=== PATIENT | male | born 1975 | race Caucasian/White ===

== ENCOUNTER 2019-11-27 21:03 | Inpatient (IN) | payer OTHER ==
--- NOTE | 2019-11-27 21:22 | PDOC ---
Rapid Medical Evaluation Time Seen by Provider: 11/27/19 21:16 Medical Evaluation: 11/27/19 21:16 Pt presents with abdominal pain since 9am this morning. Admits to nausea and vomiting. Tried Gas X with little relief of symptoms. Last oral intake 4pm Exam: TTP RLQ Orders: labs, Pt to proceed to the ER for further evaluation Discharge Disposition - Diagnosis Abdominal pain Qualifiers: Abdominal location: right lower quadrant Qualified Code(s): R10.31 - Right lower quadrant pain - Referrals - Patient Instructions - Post Discharge Activity
[2019-11-27 22:38] LABS: BASO % 0.3 % (0-2.0); HEMATOCRIT 46.6 % (35.4-49); LYMPH % 6.2 % (8-40); MCH 30.6 pg (25.7-33.7); MCHC 34.4 g/dl (32.0-35.9); MEAN CELL VOLUME 88.9 fl (80-96); MEAN PLT VOLUME 8.8 fl (7.5-11.1); MONO % 3.6 % (3.8-10.2); NEUT % 89.9 % (42.8-82.8); PLATELET COUNT 303 K/MM3 (134-434); RBC 5.25 M/mm3 (4.00-5.60); RDW 12.5 % (11.9-15.9); WHITE BLOOD COUNT 20.6 K/mm3 (4.0-10.0)
[2019-11-27 22:41] LABS: PH,URINE 6.5 (5.0-8.0); URINE APPEARANCE CLOUDY; URINE BILIRUBIN NEGATIVE (NEGATIVE); URINE COLOR YELLOW; URINE GLUCOSE (UA) NEGATIVE (NEGATIVE); URINE KETONE NEGATIVE (NEGATIVE); URINE LEUK ESTERASE NEGATIVE (NEGATIVE); URINE NITRITE NEGATIVE (NEGATIVE); URINE PROTEIN NEGATIVE (NEGATIVE); URINE UROBILINOGEN 0.2 mg/dL (0.2-1.0)
[2019-11-27] MEDS ORDERED: SODIUM CHLORIDE 0.9% 500 ML INFUS.BAG IV ONE (22:44)
[2019-11-27] MEDS ORDERED: ONDANSETRON 4 MG/2 ML VIAL IVPUSH ONE (22:44)
[2019-11-27] MEDS ORDERED: ACETAMINOPHEN 1000 MG/100 ML VIAL (NON FORMULARY) IVPB ONE (22:44)
[2019-11-27 22:49] LABS: INR 0.97 (0.83-1.09); PROTHROMBIN TIME (PATIENT) 11.5 SEC (9.7-13.0)
[2019-11-27] MEDS ORDERED: ACETAMINOPHEN INJECTION 100 ML IVPB ONE (23:01)
[2019-11-27 23:05] LABS: PLATELET ESTIMATE ADEQUATE
[2019-11-27 23:17] LABS: EPI CELLS 0.8 /uL (0-25.1); URINE BACTERIA 13.3 /uL (0-1359); URINE RBC 1.1 /uL (0-23.9); URINE WBC 0.6 /uL (0-25.8)
[2019-11-27 23:25] LABS: ALBUMIN 4.5 g/dl (3.4-5.0); BILIRUBIN,TOTAL 1.3 mg/dL (0.2-1); BLOOD UREA NITROGEN 10.1 mg/dL (7-18); CALCIUM 9.8 mg/dL (8.5-10.1); CREATININE 0.9 mg/dL (0.55-1.3); POTASSIUM 3.6 mmol/L (3.5-5.1); TOT PROT 8.6 g/dl (6.4-8.2)
--- NOTE | 2019-11-27 23:28 | PDOC ---
History of Present Illness - General Chief Complaint: Pain, Acute Stated Complaint: ABD PAIN Time Seen by Provider: 11/27/19 21:16 Past History - Medical History Allergies/Adverse Reactions: Allergies Allergy/AdvReac Type Severity Reaction Status Date / Time No Known Allergies Allergy Verified 11/27/19 22:08 COPD: No - Psycho-Social/Smoking History Smoking History: Never smoked - Substance Abuse Hx (Audit-C & DAST Scrn) How often the patient has a drink containing alcohol: Never Score: In Men: 4 or > Positive; In Women: 3 or > Positive: 0 Screen Result (Pos requires Nsg. Audit-10AR): Negative In the last yr the pt used illegal drug/Rx for NonMed reason: No Score: Yes response is considered Positive: 0 Screen Result (Positive result requires Nsg. DAST-10): Negative *Physical Exam - Vital Signs Last Vital Signs Temp Pulse Resp BP Pulse Ox 97 F L 134 H 19 126/78 97 11/27/19 21:16 11/27/19 21:16 11/27/19 21:16 11/27/19 21:16 11/27/19 21:16 ED Treatment Course - LABORATORY CBC & Chemistry Diagram: 11/27/19 22:30 11/27/19 22:30 - ADDITIONAL ORDERS Additional order review: Laboratory Results 11/27/19 11/27/19 11/27/19 22:30 22:30 22:30 PT with INR 11.50 INR 0.97 Sodium 136 Potassium 3.6 Chloride 101 Carbon Dioxide 24 Anion Gap 11 BUN 10.1 Creatinine 0.9 Est GFR (CKD-EPI)AfAm 118.30 Est GFR (CKD-EPI)NonAf 102.07 Random Glucose 114 H Calcium 9.8 Total Bilirubin 1.3 H AST 24 ALT 71 H Alkaline Phosphatase 102 Total Protein 8.6 H Albumin 4.5 Lipase 133 Urine Color Yellow Urine Appearance Cloudy Urine pH 6.5 Ur Specific [place] 1.002 L Urine Protein Negative Urine Glucose (UA) Negative Urine Ketones Negative Urine Blood Trace Urine Nitrite Negative Urine Bilirubin Negative Urine Urobilinogen 0.2 Ur Leukocyte Esterase Negative Urine WBC (Auto) 0.6 Urine RBC (Auto) 1.1 Urine Casts (Auto) 0.0 U Epithel Cells (Auto) 0.8 Urine Bacteria (Auto) 13.3 11/27/19 22:30 RBC 5.25 MCV 88.9 MCHC 34.4 RDW 12.5 MPV 8.8 Neutrophils % 89.9 H Lymphocytes % 6.2 L Monocytes % 3.6 L Eosinophils % 0.0 Basophils % 0.3 - RADIOLOGY Radiology Studies Ordered: Category Date Time Status ABDOMEN & PELVIS CT WITH CONTR [CT] Stat CT Scan 11/27/19 22:44 Ordered - Medications Given in the ED: ED Medications Discontinued Medications Generic Name Dose Route Start Last Admin Trade Name Addy PRN Reason Stop Dose Admin Acetaminophen 1,000 mg 11/27/19 22:44 11/27/19 23:10 Ofirmev Injection - IVPB 11/27/19 22:45 1,000 mg ONCE ONE Administration Ondansetron HCl 4 mg 11/27/19 22:44 11/27/19 23:10 Zofran Injection IVPUSH 11/27/19 22:45 4 mg NOW ONE Administration Sodium Chloride 1,000 ml 11/27/19 22:44 11/27/19 23:10 Normal Saline - IV 11/27/19 22:45 1,000 ml ONCE ONE Administration Discharge - Discharge Information Problems reviewed: Yes Clinical Impression/Diagnosis: Appendicitis Abdominal pain Qualifiers: Abdominal location: right lower quadrant Qualified Code(s): R10.31 - Right lower quadrant pain Condition: Stable - Admission Yes - Follow up/Referral - Patient Discharge Instructions - Post Discharge Activity
--- NOTE | 2019-11-27 23:57 | PDOC ---
Documentation entered by Deidra Reynoso SCRIBE, acting as scribe for Alize Chanel DO. Alize Chanel DO: This documentation has been prepared by the anderse, Deidra Reynoso SCRIBE, under my direction and personally reviewed by me in its entirety. I confirm that the documentation accurately reflects all work, treatment, procedures, and medical decision making performed by me. Attending Attestation - Resident Resident Name: Joan Pace - ED Attending Attestation I have performed the following: I have examined & evaluated the patient, The case was reviewed & discussed with the resident, I agree w/resident's findings & plan, Exceptions are as noted - HPI HPI: 11/27/19 22:51 Patient is a 44 year old male with no significant past medical history of who presents to the ED with abdominal pain and associated nausea and vomiting since yesterday. Patient denies: any other related symptoms Allergies: NKDA - Physicial Exam PE: 11/27/19 23:54 Gen: aaox3, uncomfortable heart: +s1s2 tachy lungs: cta b/l abd: soft, diffuse ttp, suprapubic and RLQ ttp, R cva mild ttp ext: no c/c/e - Medical Decision Making 11/27/19 23:55 a/p: 44yo male with lower abd pain, n/v -concern for appy -labs sent from [facility] reviewed -wbc 20 -ua neg -pt give tyelnol for pain and feels better -pt pending ct imaging 11/28/19 01:33 pt with appy on cta wbc 20 zosyn ordered npo [facility] for surgery, will call in AM will admit to medicine 11/28/19 01:35 case discussed with Hilario who accepts pt to service Discharge - Discharge Information Problems reviewed: Yes Clinical Impression/Diagnosis: Appendicitis Abdominal pain Qualifiers: Abdominal location: right lower quadrant Qualified Code(s): R10.31 - Right lower quadrant pain Condition: Fair - Admission Yes - Follow up/Referral - Patient Discharge Instructions - Post Discharge Activity
[2019-11-28] MEDS ORDERED: PIPERACILLIN/TAZOB 3.375 GM 3.375 GM in DEXTROSE 5%-WATER - 50 ML IVPB ONE (01:33)
[2019-11-28] MEDS ORDERED: PIPERACILLIN/TAZOB 3.375 GM 3.375 GM/50 ML BAG IVPB ONE (01:43)
--- NOTE | 2019-11-28 03:09 | PN ---
Teaching Attending Note Name of Resident: Mira Jackman ATTENDING PHYSICIAN STATEMENT I saw and evaluated the patient. I reviewed the resident's note and discussed the case with the resident. I agree with the resident's findings and plan as documented. SUBJECTIVE: 44yoM without significant PMH who presents with 1 day of acute onset abdominal pain, nausea, and vomiting. Patient states pain began in the morning in epigastric area but throughout the day increased in intensity and migrated to the RLQ. Has been unable to tolerate PO intake. Denies diarrhea, melena, hematochezia. Temp 97F on arrival, tachycardic to 134. Labs notable for WBC 20.6 with 90% PMN and 4% bands. Bilirubin 1.3, remainder of labs unremarkable. CT abd/pelvis jaelyn wed early acute appendicitis without secondary complication. ED discussed case with surgery, Dr. Valle. Patient received 1L NS, zofran, and Zosyn. OBJECTIVE: Vital Signs - 24 hr 11/27/19 21:16 Temperature 97 F L Pulse Rate 134 H Respiratory 19 Rate Blood Pressure 126/78 O2 Sat by Pulse 97 Oximetry (%) EXAM Gen: awake, alert, NAD HEENT: NC/AT. MMM CV: RRR, no MRG Resp: CTAB Abd: Tender RLQ without rebound/guarding Ext: No peripheral edema Neuro: CN II-XII grossly intact Psych: AOx3 Laboratory Results - last 24 hr 11/27/19 11/27/19 11/27/19 22:30 22:30 22:30 WBC 20.6 H RBC 5.25 Hgb 16.0 Hct 46.6 MCV 88.9 MCH 30.6 MCHC 34.4 RDW 12.5 Plt Count 303 MPV 8.8 Absolute Neuts (auto) 18.5 H Total Counted 100 Neutrophils % 89.9 H Neutrophils % (Manual) 88.0 H Band Neutrophils % 4.0 Lymphocytes % 6.2 L Lymphocytes % (Manual) 4.0 L Monocytes % 3.6 L Monocytes % (Manual) 4 Eosinophils % 0.0 Basophils % 0.3 Nucleated RBC % 0 Platelet Estimate Adequate Platelet Comment No clumping noted PT with INR 11.50 INR 0.97 Sodium 136 Potassium 3.6 Chloride 101 Carbon Dioxide 24 Anion Gap 11 BUN 10.1 Creatinine 0.9 Est GFR (CKD-EPI)AfAm 118.30 Est GFR (CKD-EPI)NonAf 102.07 Random Glucose 114 H Lactic Acid Calcium 9.8 Total Bilirubin 1.3 H AST 24 ALT 71 H Alkaline Phosphatase 102 Total Protein 8.6 H Albumin 4.5 Lipase 133 Urine Color Urine Appearance Urine pH Ur Specific [place] Urine Protein Urine Glucose (UA) Urine Ketones Urine Blood Urine Nitrite Urine Bilirubin Urine Urobilinogen Ur Leukocyte Esterase Urine WBC (Auto) Urine RBC (Auto) Urine Casts (Auto) U Epithel Cells (Auto) Urine Bacteria (Auto) 11/27/19 11/28/19 22:30 01:36 WBC RBC Hgb Hct MCV MCH MCHC RDW Plt Count MPV Absolute Neuts (auto) Total Counted Neutrophils % Neutrophils % (Manual) Band Neutrophils % Lymphocytes % Lymphocytes % (Manual) Monocytes % Monocytes % (Manual) Eosinophils % Basophils % Nucleated RBC % Platelet Estimate Platelet Comment PT with INR INR Sodium Potassium Chloride Carbon Dioxide Anion Gap BUN Creatinine Est GFR (CKD-EPI)AfAm Est GFR (CKD-EPI)NonAf Random Glucose Lactic Acid 1.1 Calcium Total Bilirubin AST ALT Alkaline Phosphatase Total Protein Albumin Lipase Urine Color Yellow Urine Appearance Cloudy Urine pH 6.5 Ur Specific [place] 1.002 L Urine Protein Negative Urine Glucose (UA) Negative Urine Ketones Negative Urine Blood Trace Urine Nitrite Negative Urine Bilirubin Negative Urine Urobilinogen 0.2 Ur Leukocyte Esterase Negative Urine WBC (Auto) 0.6 Urine RBC (Auto) 1.1 Urine Casts (Auto) 0.0 U Epithel Cells (Auto) 0.8 Urine Bacteria (Auto) 13.3 ASSESSMENT AND PLAN: 44yoM without significant PMH who presents with 2 days of abdominal pain, nausea, and vomiting found to have acute appendicitis. Appendicitis Exam, imaging consistent with acute appendicitis without evidence of complication s/p Zosyn in ED - NPO, continue maintenance fluids - IV Tylenol, morphine PRN for pain - ceftriaxone/metronidazole - surgery consulted DVT ppx: SCD pending OR
[2019-11-28] MEDS ORDERED: LACTATED RINGERS SOLUTION 1,000 ML IV SCH (03:45)
[2019-11-28] MEDS ORDERED: ACETAMINOPHEN 1000 MG/100 ML VIAL (NON FORMULARY) IVPB PRN (05:00)
--- OUTSIDE RECORDS SUMMARY | 2019-11-28 06:42 | XMS ---
:1975 Author Organization [facility] Support Name Relationship Address Phone UE, UNEMPLOYED Unavailable Unavailable Unavailable UE Unavailable Unavailable Unavailable COLBY DENTON [address] [place] [address] Re-disclosure Warning The records that you are about to access may contain information from federally- assisted alcohol or drug abuse programs. If such information is present, then the following federally mandated warning applies: This information has been disclosed to you from records protected by federal confidentiality rules (42 CFR part 2). The federal rules prohibit you from making any further disclosure of this information unless further disclosure is expressly permitted by the written consent of the person to whom it pertains or as otherwise permitted by 42 CFR part 2. A general authorization for the release of medical or other information is NOT sufficient for this purpose. The Federal rules restrict any use of the information to criminally investigate or prosecute any alcohol or drug abuse patient.The records that you are about to access may contain highly sensitive health information, the redisclosure of which is protected by Article 27-F of the [facility] Public Health law. If you continue you may haveaccess to information: Regarding HIV / AIDS; Provided by facilities licensed or operated by the [facility] Office of Mental Health; or Provided by the [facility] Office for People With Developmental Disabilities. If such information is present, then the following [facility] mandated warning applies: This information has been disclosed to you from confidential records which are protected by state law. State law prohibits you from making any further disclosure of this information without the specific written consent of the person to whom it pertains, or as otherwise permitted by law. Any unauthorized further disclosure in violation of state law may result in a fine or care home sentence or both. A general authorization for the release of medical or other information is NOT sufficient authorization for further disclosure. Insurance Providers Payer name Policy type Policy ID Covered Covered constitution party's Policy P pankaj / Coverage constitution party ID relationship to Arriola Inf ormation type arriola SELF PAY SP INSURANCE
--- NOTE | 2019-11-28 07:08 | HP ---
CHIEF COMPLAINT: Abdominal pain PCP: none HISTORY OF PRESENT ILLNESS: Micheal Barrera is a 44 yo male no prior PMH presenting with a 1 day history of abdominal pain. It began yesterday at 9 am, localized in epigastric region. He had no appetite, and pain progressively worsened throughout the day, localizing to the RLQ. He tried using medication for gas and chamomille tea with no relief. He tried to eat chicken soup for dinner but began vomiting. He reports subjective fever, did not take temperature. Denies chest pain, palpitations, lightheadedness, hematemesis, dysuria, hematochezia, melena. Lives in [facility] with . ER course was notable for: - Vitals T97, HR 134, BP 126/78, RR 19, O2 sat 97% - Imaging revealing early appendicitis without complications Recent Travel: None PAST MEDICAL HISTORY: None PAST SURGICAL HISTORY: L hernia repair 2004 Social History: Smoking:no Alcohol:no Drugs:no Allergies No Known Allergies Allergy (Verified 11/27/19 22:08) HOME MEDICATIONS: None REVIEW OF SYSTEMS see hpi PHYSICAL EXAMINATION Vital Signs - 24 hr 11/27/19 11/28/19 21:16 02:50 Temperature 97 F L 97.8 F Pulse Rate 134 H Pulse Rate [ 88 Left Radial] Respiratory 19 16 Rate Blood Pressure 126/78 Blood Pressure 106/68 [Right Arm] O2 Sat by Pulse 97 98 Oximetry (%) GENERAL: Awake, alert, and fully oriented, in no acute distress. HEAD: Normal with no signs of trauma. EYES: Pupils equal, round and reactive to light, extraocular movements intact, sclera anicteric EARS, NOSE, THROAT: Ears normal, nares patent, oropharynx clear without exudates. Moist mucous membranes. NECK: Normal range of motion, supple without lymphadenopathy LUNGS: Breath sounds equal, clear to auscultation bilaterally. No wheezes, and no crackles. No accessory muscle use. HEART: Regular rate and rhythm, normal S1 and S2 without murmur, rub or gallop. ABDOMEN: Soft, tenderness to palpation RLQ, hyperactive bowel sounds, negative Rovsing, negative obturator, negative psoas. no guarding, no rebound, no masses. LOWER EXTREMITIES: 2+ pulses, warm, well-perfused. No calf tenderness. No peripheral edema. PSYCHIATRIC: Cooperative. Good eye contact. Appropriate mood and affect. Laboratory Results - last 24 hr 10/07/20 10/07/20 10/07/20 22:30 22:30 22:30 WBC 20.6 H RBC 5.25 Hgb 16.0 Hct 46.6 MCV 88.9 MCH 30.6 MCHC 34.4 RDW 12.5 Plt Count 303 MPV 8.8 Absolute Neuts (auto) 18.5 H Total Counted 100 Neutrophils % 89.9 H Neutrophils % (Manual) 88.0 H Band Neutrophils % 4.0 Lymphocytes % 6.2 L Lymphocytes % (Manual) 4.0 L Monocytes % 3.6 L Monocytes % (Manual) 4 Eosinophils % 0.0 Basophils % 0.3 Nucleated RBC % 0 Platelet Estimate Adequate Platelet Comment No clumping noted PT with INR 11.50 INR 0.97 Sodium 136 Potassium 3.6 Chloride 101 Carbon Dioxide 24 Anion Gap 11 BUN 10.1 Creatinine 0.9 Est GFR (CKD-EPI)AfAm 118.30 Est GFR (CKD-EPI)NonAf 102.07 Random Glucose 114 H Lactic Acid Calcium 9.8 Total Bilirubin 1.3 H AST 24 ALT 71 H Alkaline Phosphatase 102 Total Protein 8.6 H Albumin 4.5 Lipase 133 Urine Color Urine Appearance Urine pH Ur Specific [place] Urine Protein Urine Glucose (UA) Urine Ketones Urine Blood Urine Nitrite Urine Bilirubin Urine Urobilinogen Ur Leukocyte Esterase Urine WBC (Auto) Urine RBC (Auto) Urine Casts (Auto) U Epithel Cells (Auto) Urine Bacteria (Auto) 11/27/19 11/28/19 22:30 01:36 WBC RBC Hgb Hct MCV MCH MCHC RDW Plt Count MPV Absolute Neuts (auto) Total Counted Neutrophils % Neutrophils % (Manual) Band Neutrophils % Lymphocytes % Lymphocytes % (Manual) Monocytes % Monocytes % (Manual) Eosinophils % Basophils % Nucleated RBC % Platelet Estimate Platelet Comment PT with INR INR Sodium Potassium Chloride Carbon Dioxide Anion Gap BUN Creatinine Est GFR (CKD-EPI)AfAm Est GFR (CKD-EPI)NonAf Random Glucose Lactic Acid 1.1 Calcium Total Bilirubin AST ALT Alkaline Phosphatase Total Protein Albumin Lipase Urine Color Yellow Urine Appearance Cloudy Urine pH 6.5 Ur Specific [place] 1.002 L Urine Protein Negative Urine Glucose (UA) Negative Urine Ketones Negative Urine Blood Trace Urine Nitrite Negative Urine Bilirubin Negative Urine Urobilinogen 0.2 Ur Leukocyte Esterase Negative Urine WBC (Auto) 0.6 Urine RBC (Auto) 1.1 Urine Casts (Auto) 0.0 U Epithel Cells (Auto) 0.8 Urine Bacteria (Auto) 13.3 ASSESSMENT/PLAN: Micheal Barrera is a 44 yo male no prior PMH presenting with a 1 day history of abdominal pain and imaging findings consistent with early appendicitis. #Acute non perforated appendicitis - History and imaging consistent with appendicitis - Per ED Dr. Valle has been contacted and will evaluate pt in AM - Received 1 L NS in ED, Zosyn, and Ofirmev; pain currently well controlled - Continue Cefazolin 1g Q8H, Flagyl 500 Q8H - Pain control with ofirmev and morphine prn - NPO at midnight - LR @ 125 mls/h DVT prophylaxis: SCDs FEN - LR @ 125 mls/hr - F/u am labs - npo Dispo: med/surg FULL CODE Family Medical History Family History: As Documented Visit type - Emergency Visit Emergency Visit: Yes ED Registration Date: 11/28/19 Care time: The patient presented to the Emergency Department on the above date and was hospitalized for further evaluation of their emergent condition. - New Patient This patient is new to me today: Yes Date on this admission: 11/28/19 - Critical Care Critical Care patient: No ATTENDING PHYSICIAN STATEMENT I saw and evaluated the patient. I reviewed the resident's note and discussed the case with the resident. I agree with the resident's findings and plan as documented. SUBJECTIVE: OBJECTIVE: ASSESSMENT AND PLAN:
[2019-11-28 07:13] LABS: ALBUMIN 3.8 g/dl (3.4-5.0); BILIRUBIN,TOTAL 1.6 mg/dL (0.2-1); BLOOD UREA NITROGEN 10.8 mg/dL (7-18); CALCIUM 8.8 mg/dL (8.5-10.1); POTASSIUM 3.6 mmol/L (3.5-5.1); TOT PROT 7.2 g/dl (6.4-8.2)
[2019-11-28 07:17] LABS: BASO % 0.3 % (0-2.0); EOS % 0.1 % (0-4.5); HEMATOCRIT 40.3 % (35.4-49); HEMOGLOBIN 13.9 GM/dL (11.7-16.9); MCH 30.5 pg (25.7-33.7); MCHC 34.4 g/dl (32.0-35.9); MEAN CELL VOLUME 88.7 fl (80-96); MEAN PLT VOLUME 8.6 fl (7.5-11.1); NEUT % 80.6 % (42.8-82.8); PLATELET COUNT 278 K/MM3 (134-434); RBC 4.55 M/mm3 (4.00-5.60); RDW 12.7 % (11.9-15.9)
--- NOTE | 2019-11-28 07:51 | CONSULT ---
<José Miguel Rivera P - Last Filed: 11/28/19 08:04> - Consultation REQUESTING PROVIDER: General Surgery -- Hugo Tori CONSULT REQUEST: We have been asked to surgically evaluate this patient for RLQ abd pain Hospitalist: Mac Mayorga HPI: Called to aneesh 44yo male without any PMHx. Presents to [facility] ED w/ c/o abd pain x1 day. Started around umbilicus and has since migrated to his RLQ. Never experienced this before. Subjective fever at home. N/V x1 after consuming chicken soup. Now admits to loss of appetite. Denies chest pain, palpitations, sob or SAAVEDRA. Denies hematemesis, dysuria, hematochezia, or melena. ER course was notable for: - Vitals T97, HR 134, BP 126/78, RR 19, O2 sat 97% - CT: early appendicitis (uncomplicated) - Initially administered Zosyn x1 then switched to Cefazolin and Flagyl PMHx: Denies. PSHx: Left Inguinal Hernia Repair 2004 Allergies: NKDA REVIEW OF SYSTEMS: CONSTITUTIONAL: Absent: chills, diaphoresis, generalized weakness, malaise, loss of appetite, weight change CARDIOVASCULAR: Absent: syncope, palpitations, irregular heart rate, peripheral edema RESPIRATORY: Absent: cough, wheezing, stridor, hemoptysis GASTROINTESTINAL:Absent: See HPI GENITOURINARY: Absent: frequency, urgency, hesitancy, hematuria, flank pain, genital pain MUSCULOSKELETAL: Absent: myalgia, arthralgia, joint swelling, back pain, neck pain SKIN: Absent: rash, itching, pallor HEMATOLOGIC/IMMUNOLOGIC: Absent: easy bleeding, easy bruising, lymphadenopathy NEUROLOGIC: Absent: headache, focal weakness, paresthesias, dizziness, unsteady gait, seizure, mental status changes, bladder or bowel incontinence PSYCHIATRIC: Absent: anxiety, depression, suicidal or homicidal ideation, hallucinations. PHYSICAL EXAM: GENERAL: Awake, alert, and fully oriented, in no acute distress. HEAD: Normal with no signs of trauma. EYES: PERRL, sclera anicteric, conjunctiva clear. NECK: Normal ROM, supple without lymphadenopathy, JVD, or masses. LUNGS: Unlabored respirations on room air. CTA bilat HEART: RRR ABDOMEN: + McBurney's. Neg Psoas/Obturator/Rovsing signs. MUSCULOSKELETAL: No CVA tenderness. UE: 2+ pulses, warm, well-perfused. No cyanosis. Cap refill <2 seconds. No peripheral edema. LE: 2+ pulses, warm, well-perfused. No calf tenderness. No peripheral edema. NEUROLOGICAL: Normal speech, gait not observed. PSYCH: Cooperative. Good eye contact. Appropriate mood and affect. SKIN: Warm, dry, normal turgor, no rashes or lesions noted. Last Vital Signs Temp Pulse Resp BP Pulse Ox 98.1 F 80 18 104/63 96 11/28/19 07:35 11/28/19 07:35 11/28/19 07:35 11/28/19 07:35 11/28/19 07:35 CBC, BMP 11/28/19 05:42 11/28/19 06:00 INR, PTT INR 0.97 (0.83-1.09) 11/27/19 22:30 Blood Type Blood Type O POSITIVE 11/28/19 05:42 Laboratory Tests 11/27/19 22:30 COVID-19 (MARTHA) Pending A/P: 44 yo male admitted with acute appendicitis as identified on CT Scan. Leukocytosis. - NPO - IVF - Covid pending; strict isolation - IV ABX - OR today for lap appy, possible open - Medical optimization Above plan discussed with Dr. Valle and agrees. Problem List - Problems (1) Appendicitis Code(s): K37 - UNSPECIFIED APPENDICITIS Qualifiers: Appendicitis type: acute appendicitis Appendicitis perforation presence: without perforation (2) Abdominal pain Code(s): R10.9 - UNSPECIFIED ABDOMINAL PAIN Qualifiers: Abdominal location: right lower quadrant Qualified Code(s): R10.31 - Right lower quadrant pain Visit type - Case Type Case Type: ED Admission - Emergency Emergency Visit: Yes ED Registration Date: 11/28/19 Care time: The patient presented to the Emergency Department on the above date and was hospitalized for further evaluation of their emergent condition. - New patient This patient is new to me today: Yes Date on this admission: 11/28/19 <Hugo Valle - Last Filed: 11/29/19 16:04> - Consultation Attending Surgeon: I personally saw and examined the patient. My examination reveals a patient with appendicitis. I discussed the case with the surgical PA and agree with their findings and plan of care with any exceptions as noted. ~ Hugo Valle MD, FACS
[2019-11-28] MEDS ORDERED: CEFAZOLIN 1 GM/D5W 1 GM/50 ML BAG ONE (08:34)
[2019-11-28] MEDS ORDERED: CEFAZOLIN 1 GM/D5W 1 GM/50 ML BAG IVPB SCH (10:00)
[2019-11-28] MEDS ORDERED: fentaNYL CITRATE 250 MCG/5 ML VIAL ONE (10:06)
[2019-11-28] MEDS ORDERED: MIDAZOLAM HCL 2 MG/2 ML SINGLE DOSE VIAL ONE (10:06)
[2019-11-28] MEDS ORDERED: ROCURONIUM BROMIDE 50 MG/5 ML SYRINGE ONE (10:06)
[2019-11-28] MEDS ORDERED: PROPOFOL 20 ML ONE (10:06)
[2019-11-28] MEDS ORDERED: LIDOCAINE HCL/PF 2% SDV 5ML VIAL ONE (10:06)
[2019-11-28] MEDS ORDERED: DEXAMETHASONE SOD PHOSPHATE 4 MG/1 ML VIAL ONE (10:06)
[2019-11-28] MEDS ORDERED: BUPIVACAINE HCL/PF 0.5% (5 MG/ML) 30 ML VIAL IJ ONE ×3 (12:20)
[2019-11-28] MEDS ORDERED: oxyCODONE HCL 5 MG TABLET PO PRN ×2 (12:31→13:09)
--- NOTE | 2019-11-28 12:34 | OP ---
Operative Note - Note: Operative Date: 11/28/19 Pre-Operative Diagnosis: Acute Appendicitis (uncomplicated) Operation: Laprascopic Appendectomy Post-Operative Diagnosis: Same as Pre-op Surgeon: Hugo Valle Accounts Payable Analyst: José Miguel Rivera Anesthesiologist/CALL CENTER AGENT: Vinh Navarro Anesthesia: General Specimens Removed: Appendix Estimated Blood Loss (mls): 5 Fluid Volume Replaced (mls): 600 Operative Report Dictated: Yes
--- NOTE | 2019-11-28 12:35 | SURG ---
Surgery Primer Powder Blender Wet Note Primer Powder Blender Wet: José Miguel Rivera PA-C Date of Service: 11/28/19 Diagnosis: Acute Appendicitis (uncomplicated) Procedure: Laprascopic Appendectomy I was present for the entirety of the operative procedure. For further detail, please refer to operative report. Visit type - Case Type Case Type: Scheduled
[2019-11-28] MEDS ORDERED: NEOSTIGMINE METHYLSULFATE 0.5 MG/ML - 10 ML MDV ONE (12:37)
--- NOTE | 2019-11-28 12:55 | OP ---
DATE OF OPERATION: 11/28/2019 PREOPERATIVE DIAGNOSIS: Acute appendicitis. POSTOPERATIVE DIAGNOSIS: Acute appendicitis. PROCEDURE: Laparoscopic appendectomy. SURGEON: Hugo Valle MD ELECTRIC WIRER: José Miguel Rivera PA-C ANESTHESIA: General. OPERATIVE FINDINGS: Acute suppurative appendicitis. The rest of the findings were unremarkable. PROCEDURE: The patient was placed on the operating room table in the supine position, and after induction of general anesthesia and placement of a Parham catheter, the patient's abdomen was prepped with ChloraPrep and draped in sterile fashion. A timeout was taken, and pneumoperitoneum established at the umbilicus, using a Veress needle to an intraabdominal pressure of 15 mmHg. Next, a 12-mm suprapubic port just to the left of the midline was placed without incident, and then a left lower quadrant 5-mm port. The patient was placed in the head-down position and rotated to the left and laparoscopy carried out and previously noted findings were observed. The appendix was grasped and using blunt dissection and the LigaSure device mobilized from the lateral abdominal wall. The mesoappendix was serially divided using the LigaSure device as well. Once the base of the appendix was identified at the confluence of the 3 tenia on the cecum, a 60-mm Endo NOEMI purple load stapler was placed across the base of the appendix and fired. The appendix was then placed in an Endo Catch and brought up to the abdominal wall at the 12-mm port site. The suture line was inspected for hemostasis and/or leak, and there was found to be none. The appendix was then removed with the 12-mm port, and sent the pathological examination. The 12-mm port was replaced and pneumoperitoneum reestablished, and hemostasis checked for and noted to be good. At this point, the two 5-mm ports and the 12-mm port were removed, and the pneumoperitoneum evacuated. The defect at the suprapubic port site was closed with a single [id number] 0 Vicryl suture, and the port sites were injected with 0.5% Marcaine. The skin edges were reapproximated with interrupted 4-0 Biosyn followed by Steri-Strips and Band-Aid dressings. The patient was then aroused from anesthesia and prior to this the Parham catheter removed, and the patient transferred to post anesthesia care unit in stable condition awake and alert. ESTIMATED BLOOD LOSS: 5 mL REPLACEMENTS: Crystalloid. DRAINS: None. SPECIMEN: Appendix to Pathology. I, Hugo Valle, was physically present in the operating room from the time the patient was placed on the operating room table until he was transferred to the postanesthesia care unit in my accompaniment. MD CONNER Knox/[id number] MTDD
--- NOTE | 2019-11-28 13:22 | EKG ---
Test Reason : Blood Pressure : / mmHG Vent. Rate : 105 BPM Atrial Rate : 105 BPM P-R Int : 138 ms QRS Dur : 076 ms QT Int : 336 ms P-R-T Axes : 051 071 024 degrees QTc Int : 444 ms SINUS TACHYCARDIA OTHERWISE NORMAL ECG WHEN COMPARED WITH ECG OF 27-NOV-2019 22:58, NO SIGNIFICANT CHANGE WAS FOUND Confirmed by BINA WALSH MD ([id number]) on 11/28/2019 1:21:56 PM Referred By: Confirmed By:BINA WALSH MD
[2019-11-28] MEDS: LACTATED RINGERS SOLUTION 1,000 ML IV SCH (13:24)
--- NOTE | 2019-11-28 14:05 | PN ---
Physical Exam: SUBJECTIVE: Patient seen and examined. Pt stated pain was controlled. Stated that his symptoms started suddenly yesterday after he felt feverish. Denied fevers, chills, SOB, c/p, n/v/d. OBJECTIVE: Vital Signs Period Temp Pulse Resp BP Sys/Booker Pulse Ox Last 24 Hr 97 F-98.1 F 62-134 14-20 104-126/63-81 96-100 GENERAL: Awake and alert, not in acute distress. HEENT: NCAT, PERRL, EOMI, moist mucus membranes. CARDIAC: Regular rate and rhythm, S1, S2 present. No murmurs. RESPIRATORY: CTA b/l, no wheezes. ABDOMEN: No scars seen. Soft, nondistended. Tender to palpation on RLQ. Normoactive bowel sounds. Negative psoas sign, negative obturator sign. EXTREMITIES: Warm, well-perfused. No edema. SKIN: Warm, dry. Laboratory Last Values WBC 14.0 K/mm3 (4.0-10.0) H 11/28/19 05:42 RBC 4.55 M/mm3 (4.00-5.60) 11/28/19 05:42 Hgb 13.9 GM/dL (11.7-16.9) 11/28/19 05:42 Hct 40.3 % (35.4-49) 11/28/19 05:42 MCV 88.7 fl (80-96) 11/28/19 05:42 MCH 30.5 pg (25.7-33.7) 11/28/19 05:42 MCHC 34.4 g/dl (32.0-35.9) 11/28/19 05:42 RDW 12.7 % (11.9-15.9) 11/28/19 05:42 Plt Count 278 K/MM3 (134-434) 11/28/19 05:42 MPV 8.6 fl (7.5-11.1) 11/28/19 05:42 Absolute Neuts (auto) 11.2 K/mm3 (1.5-8.0) H 11/28/19 05:42 Total Counted 100 11/27/19 22:30 Neutrophils % 80.6 % (42.8-82.8) 11/28/19 05:42 Neutrophils % (Manual) 88.0 % (42.8-82.8) H 11/27/19 22:30 Band Neutrophils % 4.0 % 11/27/19 22:30 Lymphocytes % 14.0 % (8-40) D 11/28/19 05:42 Lymphocytes % (Manual) 4.0 % (8-40) L 11/27/19 22:30 Monocytes % 5.0 % (3.8-10.2) 11/28/19 05:42 Monocytes % (Manual) 4 % (3.8-10.2) 11/27/19 22:30 Eosinophils % 0.1 % (0-4.5) D 11/28/19 05:42 Basophils % 0.3 % (0-2.0) 11/28/19 05:42 Nucleated RBC % 0 % (0-0) 11/28/19 05:42 Platelet Estimate Adequate 11/27/19 22:30 Platelet Comment No clumping noted 11/27/19 22:30 PT with INR 11.50 SEC (9.7-13.0) 11/27/19 22:30 INR 0.97 (0.83-1.09) 11/27/19 22:30 Sodium 138 mmol/L (136-145) 11/28/19 06:00 Potassium 3.6 mmol/L (3.5-5.1) 11/28/19 06:00 Chloride 103 mmol/L (98-107) 11/28/19 06:00 Carbon Dioxide 28 mmol/L (21-32) 11/28/19 06:00 Anion Gap 7 MMOL/L (8-16) L 11/28/19 06:00 BUN 10.8 mg/dL (7-18) 11/28/19 06:00 Creatinine 1.0 mg/dL (0.55-1.3) 11/28/19 06:00 Est GFR (CKD-EPI)AfAm 104.15 11/28/19 06:00 Est GFR (CKD-EPI)NonAf 89.86 11/28/19 06:00 Random Glucose 97 mg/dL (74-106) 11/28/19 06:00 Lactic Acid 1.1 mmol/L (0.4-2.0) 11/28/19 01:36 Calcium 8.8 mg/dL (8.5-10.1) 11/28/19 06:00 Total Bilirubin 1.6 mg/dL (0.2-1) H 11/28/19 06:00 AST 17 U/L (15-37) 11/28/19 06:00 ALT 54 U/L (13-61) 11/28/19 06:00 Alkaline Phosphatase 81 U/L (45-117) 11/28/19 06:00 Total Protein 7.2 g/dl (6.4-8.2) 11/28/19 06:00 Albumin 3.8 g/dl (3.4-5.0) 11/28/19 06:00 Lipase 133 U/L (73-393) 11/27/19 22:30 Urine Color Yellow 11/27/19: Urine Appearance Cloudy 11/27/19: Urine pH 6.5 (5.0-8.0) 11/27/19 22:30 Ur Specific [place] 1.002 (1.010-1.035) L 11/27/19 22:30 Urine Protein Negative (NEGATIVE) 11/27/19 22:30 Urine Glucose (UA) Negative (NEGATIVE) 11/27/19 22:30 Urine Ketones Negative (NEGATIVE) 11/27/19 22:30 Urine Blood Trace (NEGATIVE) 11/27/19 22:30 Urine Nitrite Negative (NEGATIVE) 11/27/19 22:30 Urine Bilirubin Negative (NEGATIVE) 11/27/19 22:30 Urine Urobilinogen 0.2 mg/dL (0.2-1.0) 11/27/19 22:30 Ur Leukocyte Esterase Negative (NEGATIVE) 11/27/19 22:30 Urine WBC (Auto) 0.6 /uL (0-25.8) 11/27/19 22:30 Urine RBC (Auto) 1.1 /uL (0-23.9) 11/27/19 22:30 Urine Casts (Auto) 0.0 /uL (0-3.1) 11/27/19 22:30 U Epithel Cells (Auto) 0.8 /uL (0-25.1) 11/27/19 22:30 Urine Bacteria (Auto) 13.3 /uL (0-1359) 11/27/19 22:30 COVID-19 (MARTHA) Cancelled 11/27/19 22:30 SARS-CoV-2 (PCR) Negative (Negative) 11/28/19 08:14 Blood Type O POSITIVE 11/28/19 05:42 Antibody Screen Negative 11/28/19 05:42 Active Medications Fentanyl (Sublimaze Injection -) 50 mcg IVPUSH [id number] PRN PRN Reason: PAIN-PACU ORDER X 4 DOSES ONLY Lactated Ringer's (Lactated Ringers Solution) 1,000 mls @ 100 mls/hr IV ASDIR MANDEEP Last Admin: 11/28/19 13:24 Dose: 100 mls Documented by: Piperacillin Sod/Tazobactam (Sod 3.375 gm/ Dextrose) 50 mls @ 100 mls/hr IVPB Q8H-IV MANDEEP; Protocol Stop: 11/28/19 18:29 Last Admin: 11/28/19 15:53 Dose: 100 mls/hr Documented by: Oxycodone HCl (Roxicodone -) 5 mg PO Q4H PRN PRN Reason: PAIN LEVEL 1-5 CT A/P 11/27 Partially distended stomach without wall thickening. T The appendix measures 9.5 mm in diameter with wall thickening and enhancement. There is a tiny appendicolith identified measuring 2 mm. Fairly minimal haziness of the surrounding mesenteric fat is present. Moderately distended urinary bladder without wall thickening. Prominent prostate gland measuring 4.6 x 4.2 cm with a small likely benign appearing calcific density in its center. Assessment/Plan: Pt is a 44 yo M with no prior PMH presented with 1 day history of abd pain, nausea and vomiting. Pt is admitted for acute uncomplicated appendicitis. Acute uncomplicated appendicitis, resolved - CT A/P as above. - POD #0 for laprascopic appendectomy. - Specimen sent to pathology. - c/w oxycodone 5mg q4H PRN and fentanyl 50mcg IVP PRN for pain - Leukocytosis, continue to monitor - c/w Zosyn 3.375 g q8H, 2 doses. Ppx: -DVT: SCDs FEN - LR @ 100 ml/Hr - Monitor electrolytes with goal of K+ of 4 and Mg++ of 2. - Clear liquid diet. Dispo: Continue to monitor on med/surg Visit type - Emergency Visit Emergency Visit: Yes ED Registration Date: 11/28/19 Care time: The patient presented to the Emergency Department on the above date and was hospitalized for further evaluation of their emergent condition. - New Patient This patient is new to me today: No - Critical Care Critical Care patient: No ATTENDING PHYSICIAN STATEMENT I saw and evaluated the patient. I reviewed the resident's note and discussed the case with the resident. I agree with the resident's findings and plan as documented. SUBJECTIVE: OBJECTIVE: ASSESSMENT AND PLAN:
[2019-11-28] MEDS ORDERED: PIPERACILLIN/TAZOBACTAM 3.375 GM VIAL IVPB ONE ×2 (15:49→17:59)
[2019-11-28] MEDS ORDERED: DEXTROSE 5%-WATER - 50 ML IVPB ONE ×2 (15:50→17:59)
[2019-11-28] MEDS: PIPERACILLIN/TAZOB 3.375 GM 3.375 GM in DEXTROSE 5%-WATER - 50 ML IVPB SCH ×2 (15:53→18:04)
[2019-11-28 16:58] VITALS: BMI 25.4
--- NOTE | 2019-11-28 18:35 | PN ---
Teaching Attending Note Name of Resident: Daniela Gale ATTENDING PHYSICIAN STATEMENT I saw and evaluated the patient. I reviewed the resident's note and discussed the case with the resident. I agree with the resident's findings and plan as documented. SUBJECTIVE: Patient is feeling better s/p lap appendicitis OBJECTIVE: Vital Signs Temperature 99.4 F 11/28/19 17:57 Pulse Rate 75 11/28/19 17:57 Respiratory Rate 18 11/28/19 17:57 Blood Pressure 121/75 11/28/19 17:57 O2 Sat by Pulse Oximetry (%) 94 L 11/28/19 17:57 PE: per resident's note CBCD WBC 14.0 K/mm3 (4.0-10.0) H 11/28/19 05:42 RBC 4.55 M/mm3 (4.00-5.60) 11/28/19 05:42 Hgb 13.9 GM/dL (11.7-16.9) 11/28/19 05:42 Hct 40.3 % (35.4-49) 11/28/19 05:42 MCV 88.7 fl (80-96) 11/28/19 05:42 MCHC 34.4 g/dl (32.0-35.9) 11/28/19 05:42 RDW 12.7 % (11.9-15.9) 11/28/19 05:42 Plt Count 278 K/MM3 (134-434) 11/28/19 05:42 MPV 8.6 fl (7.5-11.1) 11/28/19 05:42 CMP Sodium 138 mmol/L (136-145) 11/28/19 06:00 Potassium 3.6 mmol/L (3.5-5.1) 11/28/19 06:00 Chloride 103 mmol/L (98-107) 11/28/19 06:00 Carbon Dioxide 28 mmol/L (21-32) 11/28/19 06:00 Anion Gap 7 MMOL/L (8-16) L 11/28/19 06:00 BUN 10.8 mg/dL (7-18) 11/28/19 06:00 Creatinine 1.0 mg/dL (0.55-1.3) 11/28/19 06:00 Random Glucose 97 mg/dL (74-106) 11/28/19 06:00 Calcium 8.8 mg/dL (8.5-10.1) 11/28/19 06:00 Total Bilirubin 1.6 mg/dL (0.2-1) H 11/28/19 06:00 AST 17 U/L (15-37) 11/28/19 06:00 ALT 54 U/L (13-61) 11/28/19 06:00 Alkaline Phosphatase 81 U/L (45-117) 11/28/19 06:00 Total Protein 7.2 g/dl (6.4-8.2) 11/28/19 06:00 Albumin 3.8 g/dl (3.4-5.0) 11/28/19 06:00 Current Medications Generic Name Dose Route Start Last Admin Trade Name Moyq PRN Reason Stop Dose Admin Fentanyl 50 mcg 11/28/19 13:09 Sublimaze Injection - IVPUSH [id number] PRN PAIN-PACU ORDER X 4 DOSES ONLY Lactated Ringer's 1,000 mls @ 100 mls/hr 11/28/19 13:09 11/28/19 13:24 Lactated Ringers Solution IV 100 mls ASDIR MANDEEP Administration Oxycodone HCl 5 mg 11/28/19 13:09 Roxicodone - PO Q4H PRN PAIN LEVEL 1-5 Home Medications Medication Instructions Recorded oxyCODONE HCL [Roxicodone -] 5 mg PO Q4H PRN #10 tablet MDD 6 11/28/19 CT a/p: Partially distended stomach without wall thickening. T The appendix measures 9.5 mm in diameter with wall thickening and enhancement. There is a tiny appendicolith identified measuring 2 mm. Fairly minimal haziness of the surrounding mesenteric fat is present. Moderately distended urinary bladder without wall thickening. Prominent prostate gland measuring 4.6 x 4.2 cm with a small likely benign appearing calcific density in its center. Assessment/Plan: Pt is a 44 yo M with no prior PMH presented with 1 day history of abd pain, nausea and vomiting. Pt is admitted for acute uncomplicated appendicitis. #POD #0 for laprascopic appendectomy due to acute uncomplicated appendicitis. follow the bx continue pain meds, IVF, zosyn 2 more doses DVTpx: SCDs
[2019-11-29] MEDS: LACTATED RINGERS SOLUTION 1,000 ML IV SCH (00:28)
--- NOTE | 2019-11-29 07:52 | PN ---
Progress Note (short form) - Note Progress Note: GENERAL SURGERY POD #1 s/p Lap appy under GA. Alert. Doing well. C/o minimal incisional tenderness He is oob and ambulating unassisted. Voiding spontaneously. Tolerating clear diet. Denies n/v/f/c, CP, palpitations, SOB, or SAAVEDRA AVSS. Afebrile. Gen:nad ABD: all surgical ports c/d/i LE: soft, supple, nt. A/P: POD #1 s/p lap appy Reg diet cont oob and ambulating f/u w/ Dr. Valle as outlined in DC PLAN Cleared for discharge home today On behalf of Dr. Valle, thank you for the opportunity to participate in your patient's care. Problem List - Problems (1) Appendicitis Code(s): K37 - UNSPECIFIED APPENDICITIS Qualifiers: Appendicitis type: acute appendicitis Appendicitis perforation presence: without perforation (2) Abdominal pain Code(s): R10.9 - UNSPECIFIED ABDOMINAL PAIN Qualifiers: Abdominal location: right lower quadrant Qualified Code(s): R10.31 - Right lower quadrant pain
[2019-11-29 09:01] LABS: BASO % 0.2 % (0-2.0); EOS % 0.2 % (0-4.5); HEMATOCRIT 37.9 % (35.4-49); HEMOGLOBIN 13.2 GM/dL (11.7-16.9); LYMPH % 22.4 % (8-40); MCH 31.6 pg (25.7-33.7); MCHC 34.9 g/dl (32.0-35.9); MEAN CELL VOLUME 90.4 fl (80-96); MEAN PLT VOLUME 8.4 fl (7.5-11.1); MONO % 5.9 % (3.8-10.2); NEUT % 71.3 % (42.8-82.8); PLATELET COUNT 261 K/MM3 (134-434); RBC 4.19 M/mm3 (4.00-5.60); RDW 12.8 % (11.9-15.9); WHITE BLOOD COUNT 10.6 K/mm3 (4.0-10.0)
[2019-11-29 09:25] LABS: BLOOD UREA NITROGEN 13.8 mg/dL (7-18); CALCIUM 8.5 mg/dL (8.5-10.1); CREATININE 0.9 mg/dL (0.55-1.3); MAGNESIUM 2.3 mg/dL (1.8-2.4); POTASSIUM 3.7 mmol/L (3.5-5.1)
--- NOTE | 2019-11-29 12:29 | DS ---
"Physical Exam: SUBJECTIVE: Patient seen and examined. POD #1 for laprascopic appendectomy. Pt stated pain improved. Endorsed to eating well and passing flatus. No BM as of yet. OBJECTIVE: Vital Signs Period Temp Pulse Resp BP Sys/Booker Pulse Ox Last 24 Hr 97.9 F-99.4 F 61-94 14-20 115-127/54-81 94-100 PHYSICAL EXAM GENERAL: Awake and alert, not in acute distress. HEENT: NCAT, PERRL, EOMI, moist mucus membranes. CARDIAC: Regular rate and rhythm, S1, S2 present. No murmurs. RESPIRATORY: CTA b/l, no wheezes. ABDOMEN: 3 surgical incisions seen. Clean, dry, intact. Mildly tender at incision site. Normoactive bowel sounds. EXTREMITIES: Warm, well-perfused. No edema. SKIN: Warm, dry. LABS Laboratory Last Values WBC 10.6 K/mm3 (4.0-10.0) H 11/29/19 08:05 RBC 4.19 M/mm3 (4.00-5.60) 11/29/19 08:05 Hgb 13.2 GM/dL (11.7-16.9) 11/29/19 08:05 Hct 37.9 % (35.4-49) 11/29/19 08:05 MCV 90.4 fl (80-96) 11/29/19 08:05 MCH 31.6 pg (25.7-33.7) 11/29/19 08:05 MCHC 34.9 g/dl (32.0-35.9) 11/29/19 08:05 RDW 12.8 % (11.9-15.9) 11/29/19 08:05 Plt Count 261 K/MM3 (134-434) 11/29/19 08:05 MPV 8.4 fl (7.5-11.1) 11/29/19 08:05 Absolute Neuts (auto) 7.6 K/mm3 (1.5-8.0) 11/29/19 08:05 Total Counted 100 11/27/19 22:30 Neutrophils % 71.3 % (42.8-82.8) 11/29/19 08:05 Neutrophils % (Manual) 88.0 % (42.8-82.8) H 11/27/19 22:30 Band Neutrophils % 4.0 % 11/27/19 22:30 Lymphocytes % 22.4 % (8-40) D 11/29/19 08:05 Lymphocytes % (Manual) 4.0 % (8-40) L 11/27/19 22:30 Monocytes % 5.9 % (3.8-10.2) 11/29/19 08:05 Monocytes % (Manual) 4 % (3.8-10.2) 11/27/19 22:30 Eosinophils % 0.2 % (0-4.5) D 11/29/19 08:05 Basophils % 0.2 % (0-2.0) 11/29/19 08:05 Nucleated RBC % 0 % (0-0) 11/29/19 08:05 Platelet Estimate Adequate 11/27/19 22:30 Platelet Comment No clumping noted 11/27/19 22:30 PT with INR 11.50 SEC (9.7-13.0) 11/27/19 22:30 INR 0.97 (0.83-1.09) 11/27/19 22:30 Sodium 141 mmol/L (136-145) 11/29/19 08:05 Potassium 3.7 mmol/L (3.5-5.1) 11/29/19 08:05 Chloride 105 mmol/L (98-107) 11/29/19 08:05 Carbon Dioxide 29 mmol/L (21-32) 11/29/19 08:05 Anion Gap 7 MMOL/L (8-16) L 11/29/19 08:05 BUN 13.8 mg/dL (7-18) 11/29/19 08:05 Creatinine 0.9 mg/dL (0.55-1.3) 11/29/19 08:05 Est GFR (CKD-EPI)AfAm 118.30 11/29/19 08:05 Est GFR (CKD-EPI)NonAf 102.07 11/29/19 08:05 Random Glucose 81 mg/dL (74-106) 11/29/19 08:05 Lactic Acid 1.1 mmol/L (0.4-2.0) 11/28/19 01:36 Calcium 8.5 mg/dL (8.5-10.1) 11/29/19 08:05 Magnesium 2.3 mg/dL (1.8-2.4) 11/29/19 08:05 Total Bilirubin 1.6 mg/dL (0.2-1) H 11/28/19 06:00 AST 17 U/L (15-37) 11/28/19 06:00 ALT 54 U/L (13-61) 11/28/19 06:00 Alkaline Phosphatase 81 U/L (45-117) 11/28/19 06:00 Total Protein 7.2 g/dl (6.4-8.2) 11/28/19 06:00 Albumin 3.8 g/dl (3.4-5.0) 11/28/19 06:00 Lipase 133 U/L (73-393) 11/27/19 22:30 Urine Color Yellow 11/27/19 22: Urine Appearance Cloudy 11/27/19 22:30 Urine pH 6.5 (5.0-8.0) 11/27/19 22:30 Ur Specific [place] 1.002 (1.010-1.035) L 11/27/19 22:30 Urine Protein Negative (NEGATIVE) 11/27/19 22:30 Urine Glucose (UA) Negative (NEGATIVE) 11/27/19 22:30 Urine Ketones Negative (NEGATIVE) 11/27/19 22:30 Urine Blood Trace (NEGATIVE) 11/27/19 22:30 Urine Nitrite Negative (NEGATIVE) 11/27/19 22:30 Urine Bilirubin Negative (NEGATIVE) 11/27/19 22:30 Urine Urobilinogen 0.2 mg/dL (0.2-1.0) 11/27/19 22:30 Ur Leukocyte Esterase Negative (NEGATIVE) 11/27/19 22:30 Urine WBC (Auto) 0.6 /uL (0-25.8) 11/27/19 22:30 Urine RBC (Auto) 1.1 /uL (0-23.9) 11/27/19 22:30 Urine Casts (Auto) 0.0 /uL (0-3.1) 11/27/19 22:30 U Epithel Cells (Auto) 0.8 /uL (0-25.1) 11/27/19 22:30 Urine Bacteria (Auto) 13.3 /uL (0-1359) 11/27/19 22:30 COVID-19 (MARTHA) Cancelled 11/27/19 22:30 SARS-CoV-2 (PCR) Negative (Negative) 11/28/19 08:14 Blood Type O POSITIVE 11/28/19 05:42 Antibody Screen Negative 11/28/19 05:42 HOSPITAL COURSE: Pt is a 44 yo M with no prior PMH presented with 1 day history of abd pain, nausea and vomiting. Pt is admitted for acute uncomplicated appendicitis. CT A/P done on 11/27 showed appendix measures 9.5 mm in diameter with wall thickening and enhancement. There is a tiny appendicolith identified measuring 2 mm. Pt is s/p laprascopic appendectomy with improvement of symptoms. Pain was controlled. Pt given 3 doses of Zosyn. Pt tolerated regular diet, is passing gas and is without pain. Pt is hemodynamically stable and medically optimized for discharge home. Pt given clear instructions for post surgical care and is to follow up with surgeon in 1 week. Date of Admission:11/28/19 Date of Discharge: 11/29/19 Minutes to complete discharge: 36 Discharge Summary Problems reviewed: Yes Reason For Visit: APPENDICITIS Condition: Improved - Instructions Diet, Activity, Other Instructions: Your Hospitalization: You came to the hospital because you were experiencing abdominal pain with abdominal pain, nausea and vomiting. You were admitted to the hospital for care of these symptoms. We did imaging of your abdomen. You were found to have appendicitis. You were taken to surgery to have your appendix removed. You were given pain medication to address your pain. You are now stable and may return home. Additional findings: During imaging of your abdomen, you were incidentally found to have a benign calcification in the center of your prostate. You may follow up with your primary care doctor regarding monitoring this finding. New Medications: -Please take Oxycodone 5mg by mouth every 4 hours as needed for your pain. Follow up: -Please make an appointment to see a primary care provider 1 week from today. If you do not have one, you can call to schedule an appointment at the [facility], located at [address] [place] [address]. If you would like to continue seeing Dr. Daniela Gale, please ask for a Monday morning appointment. You may discuss your hospitalization during this visit. -Please make an appointment to see your surgeon, Dr. Valle, 1 week from today for further surgical management. Additional instructions: -You are being discharged home. -Please take care of your wound as instructed below. -Please call 911 or come directly to the emergency department if you experience recurrence of the symptoms that brought you to the hospital, unusual headache, vision change, shortness of breath, chest pain, numbness, tingling, loss of alertness/awareness, loss of function, unusual bleeding or any alarming symptoms. Dr. Valle Discharge Instructions Dear MILY STANLEY, Post Operative Instructions Physical activity Resume your normal everyday activity as tolerated no heavy lifting or exercise until seen by your surgeon. You may walk unlimited amounts of and climb stairs. You may resume driving the car when you feel safe and comfortable behind the wheel. Wound care You have a liquid bandage over your incisions. This will come off slowly on its own over the next few weeks. Please avoid picking at it if you notice it flaking. You may shower starting tomorrow. When showering allow soap and water to run over the incision. Do not scrub, pat dry after showering. Diet There are no dietary restrictions. Eat healthy, high-fiber foods. Drink 6 to 8 glasses of liquid each day. This will assist in keeping your bowels are regular. Pain management You may take Tylenol or acetaminophen or Ibuprofen (for example, Motrin, Advil etc.) Any pain prescription medication ordered should be taken as prescribed for moderate to severe pain. Call Dr. Valle for any of the following: Severe pain not relieved by medication Fever of 101 or higher Excessive bleeding or drainage on dressing Inability to urinate Call the office at [phone] for a post operative appointment in 7 - 10 days. [facility] The Drug Utilization Report below displays all of the controlled substance prescriptions, if any, that your patient has filled in the last twelve months. The information displayed on this report is compiled from pharmacy submissions to the Department, and accurately reflects the information as submitted by the pharmacies. This report was requested by: José Miguel Rivera | Reference #: [id number] Referrals: Marcus Henderson MD [Staff Physician] - 2 Weeks Hugo Valle MD [Staff Physician] - 1 Week Disposition: HOME - Home Medications Comprehensive Discharge Medication List: Ambulatory Orders oxyCODONE HCL [Roxicodone -] 5 mg PO Q4H PRN #10 tablet MDD 6 11/28/19 This patient is new to me today: No Emergency Visit: Yes ED Registration Date: 11/28/19 Care time: The patient presented to the Emergency Department on the above date and was hospitalized for further evaluation of their emergent condition. Critical Care patient: No - Discharge Referral Referred to [facility] No ATTENDING PHYSICIAN STATEMENT I saw and evaluated the patient. I reviewed the resident's note and discussed the case with the resident. I agree with the resident's findings and plan as documented. SUBJECTIVE: OBJECTIVE: ASSESSMENT AND PLAN:"
[2019-11-29 15:59] VITALS: BP 122/70; PULSE 63; TEMP 98.2
--- NOTE | 2019-11-29 16:05 | PN ---
Teaching Attending Note Name of Resident: Daniela Gale ATTENDING PHYSICIAN STATEMENT I saw and evaluated the patient. I reviewed the resident's note and discussed the case with the resident. I agree with the resident's findings and plan as documented. SUBJECTIVE: Patient is feeling better with NAD , wants to go home OBJECTIVE: Vital Signs Temperature 98.2 F 11/29/19 14:00 Pulse Rate 63 11/29/19 14:00 Respiratory Rate 16 11/29/19 14:00 Blood Pressure 122/70 11/29/19 14:00 O2 Sat by Pulse Oximetry (%) 97 11/29/19 14:00 PE: per resident's note CBCD WBC 10.6 K/mm3 (4.0-10.0) H 11/29/19 08:05 RBC 4.19 M/mm3 (4.00-5.60) 11/29/19 08:05 Hgb 13.2 GM/dL (11.7-16.9) 11/29/19 08:05 Hct 37.9 % (35.4-49) 11/29/19 08:05 MCV 90.4 fl (80-96) 11/29/19 08:05 MCHC 34.9 g/dl (32.0-35.9) 11/29/19 08:05 RDW 12.8 % (11.9-15.9) 11/29/19 08:05 Plt Count 261 K/MM3 (134-434) 11/29/19 08:05 MPV 8.4 fl (7.5-11.1) 11/29/19 08:05 CMP Sodium 141 mmol/L (136-145) 11/29/19 08:05 Potassium 3.7 mmol/L (3.5-5.1) 11/29/19 08:05 Chloride 105 mmol/L (98-107) 11/29/19 08:05 Carbon Dioxide 29 mmol/L (21-32) 11/29/19 08:05 Anion Gap 7 MMOL/L (8-16) L 11/29/19 08:05 BUN 13.8 mg/dL (7-18) 11/29/19 08:05 Creatinine 0.9 mg/dL (0.55-1.3) 11/29/19 08:05 Random Glucose 81 mg/dL (74-106) 11/29/19 08:05 Calcium 8.5 mg/dL (8.5-10.1) 11/29/19 08:05 Total Bilirubin 1.6 mg/dL (0.2-1) H 11/28/19 06:00 AST 17 U/L (15-37) 11/28/19 06:00 ALT 54 U/L (13-61) 11/28/19 06:00 Alkaline Phosphatase 81 U/L (45-117) 11/28/19 06:00 Total Protein 7.2 g/dl (6.4-8.2) 11/28/19 06:00 Albumin 3.8 g/dl (3.4-5.0) 11/28/19 06:00 Current Medications Generic Name Dose Route Start Last Admin Trade Name Freq PRN Reason Stop Dose Admin Fentanyl 50 mcg 11/28/19 13:09 Sublimaze Injection - IVPUSH [id number] PRN PAIN-PACU ORDER X 4 DOSES ONLY Lactated Ringer's 1,000 mls @ 100 mls/hr 11/28/19 13:09 11/29/19 00:28 Lactated Ringers Solution IV 100 mls/hr ASDIR MANDEEP Administration Oxycodone HCl 5 mg 11/28/19 13:09 Roxicodone - PO Q4H PRN PAIN LEVEL 1-5 Home Medications Medication Instructions Recorded oxyCODONE HCL [Roxicodone -] 5 mg PO Q4H PRN #10 tablet MDD 6 11/28/19 CT a/p:Partially distended stomach without wall thickening. The appendix measures 9.5 mm in diameter with wall thickening and enhancement. There is a tiny appendicolith identified measuring 2 mm. Fairly minimal haziness of the surrounding mesenteric fat is present. Moderately distended urinary bladder without wall thickening. Prominent prostate gland measuring 4.6 x 4.2 cm with a small likely benign appearing calcific density in its center. Assessment/Plan: Pt is a 44yom with no prior PMHx presented with one day hx of abd pain, with N/V. Pt is admitted for acute uncomplicated appendicitis. #POD #1 s/p laprascopic appendectomy due to acute uncomplicated appendicitis. follow the bx dc patient home with f/u visit with Dr Valle DVT px: SCDs
--- NOTE | 2019-12-02 15:27 | PATH ---
Surgical Pathology Report Patient Name: MILY XIE Med. Rec. #: [id number] /Age/Gender: 1975 (Age: 44) / M Account: [id number] Location: [address] [place] [address]/[facility] Taken: 11/28/2019 Received: 11/28/2019 Reported: 12/02/2019 Physicians: MD Alize Pitt, Specimen(s) Received APPENDIX Clinical History Appendicitis Final Diagnosis APPENDIX, APPENDECTOMY: ACUTE APPENDICITIS AND PERIAPPENDICITIS. Electronically Signed Seun Mercedes M.D. Gross Description Received in formalin, labeled "appendix," is a 6 cm. in length vermiform appendix with a stapled margin of resection and moderate attached fat. The serosa is guillen-moss and smooth. Sectioning reveals a hemorrhagic lumen. The wall of the appendix averages 0.1 cm. in thickness. Distribution Dispatcher sections are submitted in one cassette. 11/29/2019 saudi11/29/2019
== END 2019-11-29 16:36 | disposition home or self-care (01) | DRG 225 ==
LOC: JER 21:03 → JERBED 11-28 01:35 → J5S 11-28 14:31
PROVIDERS: ADMIT Hospitalist; ATTEND Internal Medicine
PROC: 0DTJ4ZZ Resection of Appendix, Percutaneous Endoscopic Approach (ICD-10-PCS; principal; 2019-11-28 10:30)
DX: K35.80 Unspecified acute appendicitis (principal)
CPT/HCPCS: 36415; 74177-TC; 80048; 80053; 81003; 83605; 83690; 83735; 85025; 85610; 86850; 86900; 86901; 87086; 88304-TC; 93005; 93010; 94010; 94760; 99285-25; C9803; J0131; U0003